=== PATIENT | male | born 1970 | race Caucasian/White ===

== ENCOUNTER → 2022-12-21 | Outpatient (CLI) | payer OTHER ==
[2022-12-21 20:10] LABS: Basophils # (A) 0.11 X 10*3/uL (0.00-0.10); Basophils % (A) 1.7 %; Eosinophils # (A) 0.35 X 10*3/uL (0.04-0.35); Eosinophils % (A) 5.3 %; HCT 45.3 % (39.6-50.0); HGB 15.5 d/dL (12.0-15.0); Lymphocytes # (A) 2.35 X 10*3/uL (0.90-5.00); Lymphocytes % (A) 35.7 %; MCH 32.5 pg (27.0-32.0); MCHC 34.2 d/dL (32.0-37.0); Mean Platelet Volume 10.2 FL (9.5-12.2); Monocytes # (A) 0.51 X 10*3/uL (0.20-1.00); Monocytes % (A) 7.8 %; NRBC Per 100 WBC 0 X 10*3/uL (0.00-0.01); Neutrophils # (A) 3.21 X 10*3/uL (1.80-7.70); Neutrophils % (A) 48.7 %; Platelet Count 240 X 10*3/uL (140-440); RBC 4.77 X 10*6/uL (4.40-5.60); RDW 12.9 % (11.5-14.5); WBC 6.58 X 10*3/uL (4.50-10.00)
[2022-12-21 20:11] LABS: BUN/Creat Ratio 14.78 Ratio (12.00-20.00); Blood Urea Nitrogen 13.3 mg/dL (9.0-27.0); Chloride 106 mmol/L (96-109); Chol/HDL Ratio 3.59 Ratio; Glucose 90 mg/dL (70-110); LDL Cholesterol,Calculated 111.4 mg/dL (0.0-131.0); Potassium 4.4 mmol/L (3.5-5.5); Sodium 139 mmol/L (135-145); VLDL Calculation 17.84 mg/dL (5.00-40.00)
[2022-12-21 20:12] LABS: ALT 20 U/L (10-49); AST 18 U/L (14-35); Albumin 4.3 d/dL (3.8-4.9); Albumin/Globulin Ratio 2.15 Ratio (1.60-3.17); Alkaline Phosphatase 85 U/L (41-126); Calcium 9.7 mg/dL (8.7-10.3); Total Bilirubin 0.3 mg/dL (0.3-1.2); Total Protein 6.3 d/dL (6.2-8.2)
== END | disposition home or self-care (01) ==
LOC: LABWHC1 16:26
PROVIDERS: ATTEND Internal Medicine
DX: Z13.0 Encounter for screening for diseases of the blood and blood-forming organs and certain disorders involving the immune mechanism (principal); Z13.228 Encounter for screening for other metabolic disorders; Z13.220 Encounter for screening for lipoid disorders; Z13.29 Encounter for screening for other suspected endocrine disorder; Z12.5 Encounter for screening for malignant neoplasm of prostate
CPT/HCPCS: 80061; 80053; 84443; 85025; 36415; G0103